=== PATIENT | male | born 1955 | race African-American/Black ===

== ENCOUNTER → 2018-12-12 | Outpatient (CLI) | payer OTHER ==
--- NOTE | 2018-12-13 05:22 | REP ---
Clinical: Right shoulder pain . Technique: Internal rotation, external rotation, and Y view right shoulder . Findings: No acute fracture or dislocation. The acromioclavicular and glenohumeral joints are intact. No periarticular calcifications or degenerative changes are appreciated. Sub acromial space is normal. Surrounding soft tissues are unremarkable. Impression: Age-appropriate right shoulder radiographs. Electronically Signed by Barry Bui MD 12/13/2018 05:14 A
--- NOTE | 2018-12-13 05:24 | REP ---
Clinical: Right shoulder pain. Technique: AP and lateral views of the right scapula. Findings: Scapula appears intact and relatively normal for age. No acute fracture or dislocation. No overt osteoarthritic changes. Surrounding soft tissues are unremarkable. Impression: Age-appropriate right scapula radiograph. Electronically Signed by Barry Bui MD 12/13/2018 05:15 A
--- NOTE | 2018-12-13 05:41 | REP ---
Clinical: Right elbow pain. Technique: AP, lateral, bilateral oblique views of the right elbow. Findings: Posterior spurring at the olecranon process E with underlying tendinopathy. Remainder examination appears relatively normal for age. No acute fracture dislocation. Fat pads are in satisfactory position. No obvious calcified loose bodies. Impression: Posterior spurring at the olecranon process consistent with tendinopathy. Electronically Signed by Barry Bui MD 12/13/2018 05:32 A
== END ==
LOC: M RAD 08:53
PROVIDERS: ATTEND Surgery
DX: M25.511 Pain in right shoulder (principal); M25.521 Pain in right elbow